=== PATIENT | male | born 1975 | race Caucasian/White ===

== ENCOUNTER 2018-03-19 08:19 | Emergency (ER) | payer SELFPAY ==
[2018-03-19 08:27] VITALS: BP 132/79; PULSE 79; RESP 18; TEMP 97.6; O2SAT 98
[2018-03-19] MEDS ORDERED: SODIUM CHLOR 0.9% 1000 ML INJ 1,000 ML IV SCH (09:16)
[2018-03-19] MEDS ORDERED: FAMOTIDINE 20 MG/2 ML VIAL IV PUSH ONE (09:30)
[2018-03-19] MEDS ORDERED: SODIUM CHLORIDE 0.9% FLUSH 10 ML FLUSH IV FLUSH PRN (09:30)
[2018-03-19 09:45] LABS: AUTOMATED NEUTROPHIL # 4.3 TH/MM3 (1.8-7.7); BASOPHIL % 0.5 % (0.0-2.0); EOSINOPHIL # 0.2 TH/MM3 (0-0.4); EOSINOPHIL % 3.3 % (0.0-4.0); HEMATOCRIT 45.6 % (39.0-51.0); HEMOGLOBIN 15.7 GM/DL (13.0-17.0); LYMPHOCYTE # 2.2 TH/MM3 (1.0-4.8); MEAN CELL VOLUME 89.9 FL (80.0-100.0); MEAN CORPUSCULAR HEMOGLOBIN 30.9 PG (27.0-34.0); MEAN CORPUSCULAR HGB CONC 34.3 % (32.0-36.0); MEAN PLATELET VOLUME 7.5 FL (7.0-11.0); MONO % 7.7 % (0.0-8.0); MONOCYTE # 0.6 TH/MM3 (0-0.9); NEUT % 58.5 % (16.0-70.0); PLATELET COUNT 234 TH/MM3 (150-450); RED BLOOD COUNT 5.07 MIL/MM3 (4.50-5.90); RED CELL DISTRIBUTION WIDTH 14.2 % (11.6-17.2); WHITE BLOOD COUNT 7.3 TH/MM3 (4.0-11.0)
--- NOTE | 2018-03-19 09:53 | RADRPT ---
EXAM DATE/TIME: 03/19/2018 09:42 [facility] COMPARISON: No previous studies available for comparison. INDICATIONS : Chest pain. MEDICAL HISTORY : None. SURGICAL HISTORY : None. ENCOUNTER: Initial ACUITY: 3 days PAIN SCORE: 1/10 LOCATION: Bilateral chest FINDINGS: A single view of the chest demonstrates the lungs to be symmetrically aerated without evidence of mas s, infiltrate or effusion. The cardiomediastinal contours are unremarkable. Osseous structures are intact. CONCLUSION: Normal examination. Earl Mosquera MD on March 19, 2018 at 9:51 Board Certified Radiologist. This report was verified electronically.
--- NOTE | 2018-03-19 09:53 | RADRPT ---
EXAM DATE/TIME: 03/19/2018 09:39 [facility] COMPARISON: No previous studies available for comparison. INDICATIONS : Abdominal pain and vomiting. MEDICAL HISTORY : None. SURGICAL HISTORY : None. ENCOUNTER: Initial ACUITY: 3 days PAIN SCORE: 1/10 LOCATION: Bilateral upper abdomen FINDINGS: Supine and upright views of the abdomen were performed. The abdominal bowel gas pattern is normal. No air fluid levels are seen. No abnormal masses, calcifications, or organomegaly is seen. The visu alized lower lungs are clear. No evidence of free intraperitoneal gas. The osseous structures are u nremarkable. CONCLUSION: Normal examination. Earl Mosquera MD on March 19, 2018 at 9:51 Board Certified Radiologist. This report was verified electronically.
[2018-03-19 09:57] VITALS: O2SAT 98
[2018-03-19 09:59] LABS: ALBUMIN 3.9 GM/DL (3.4-5.0); AST (GOT) 33 U/L (15-37); BICARBONATE 28.7 MEQ/L (21.0-32.0); BLOOD UREA NITROGEN 14 MG/DL (7-18); CALCIUM 8.8 MG/DL (8.5-10.1); CHLORIDE 105 MEQ/L (98-107); CREATININE 0.87 MG/DL (0.60-1.30); GLOMERULAR FILTRATION RATE 97 ML/MIN (>89); GLUCOSE,RANDOM 97 MG/DL (74-106); SODIUM (NA) 139 MEQ/L (136-145)
[2018-03-19 10:00] LABS: ALT (GPT) 39 U/L (12-78)
[2018-03-19 10:02] LABS: ALKALINE PHOSPHATASE 84 U/L (45-117); TOTAL BILIRUBIN ADULT 0.3 MG/DL (0.2-1.0); TOTAL PROTEIN 7.5 GM/DL (6.4-8.2)
--- NOTE | 2018-03-19 10:44 | PD ---
HPI Chief Complaint: GI Complaint Time Seen by Provider: 09:24 Travel History International Travel<30 days: No Contact w/Intl Traveler<30days: No Traveled to known affect area: No History of Present Illness HPI 42-year-old male patient with history of. He states his symptoms started after he had been drinking alcohol and vomited. He states that he feels like a fullness like a gas pain. He had tried to take [id number] acid blockers without significant relief. Pain is currently a 2-3 out of 10. He denies any fevers, diarrhea, coughing, shortness of breath, chest pains, or any other issues. Modifying Factors: None Associated Signs & Symptoms: Upper abdominal pain, nausea Risk Factors: Recent alcohol use and vomiting PFSH Past Medical History Medical History: Denies Significant Hx Diminished Hearing: No Tetanus Vaccination: Unknown Past Surgical History Surgical History: No Previous Surgery Social History Alcohol Use: Yes (DAILY " 2 SHOTS OF WHISKEY OR FIREBALL") Tobacco Use: Yes (1 PPD) Substance Use: Yes (MARIJUANA) Allergies-Medications (Allergen,Severity, Reaction): Coded Allergies: No Known Allergies (Unverified , 03/19/18) Reported Meds & Prescriptions Reported Meds & Active Scripts Active No Active Prescriptions or Reported Medications Review of Systems Except as stated in HPI: all other systems reviewed are Neg Physical Exam Narrative GENERAL: Well-developed middle-age male patient currently in mild distress. Awake and oriented 3. SKIN: Focused skin assessment warm/dry. HEAD: Atraumatic. Normocephalic. EYES: Pupils equal and round. No scleral icterus. No injection or drainage. ENT: No nasal bleeding or discharge. Mucous membranes pink and moist. NECK: Trachea midline. No JVD. CARDIOVASCULAR: Regular rate and rhythm. No murmur appreciated. RESPIRATORY: No accessory muscle use. Clear to auscultation. Breath sounds equal bilaterally. GASTROINTESTINAL: Abdomen soft, mild left-sided upper abdominal tenderness without guarding or rebound, nondistended. Hepatic and splenic margins not palpable. MUSCULOSKELETAL: No obvious deformities. No clubbing. No cyanosis. No edema. NEUROLOGICAL: Awake and alert. No obvious cranial nerve deficits. Motor grossly within normal limits. Normal speech. PSYCHIATRIC: Appropriate mood and affect; insight and judgment normal. Data Data Last Documented VS Vital Signs Date Time Temp Pulse Resp B/P (MAP) Pulse Ox O2 Delivery O2 Flow Rate FiO2 03/19/18 09:57 98 Room Air 03/19/18 08:27 97.6 79 18 132/79 (96) Orders Orders Complete Blood Count With Diff (03/19/18 09:16) Comprehensive Metabolic Panel (03/19/18 09:16) Lipase (03/19/18 09:16) Iv Access Insert/Monitor (03/19/18 09:16) Ecg Monitoring (03/19/18 09:16) Oximetry (03/19/18 09:16) Sodium Chlor 0.9% 1000 Ml Inj (Ns 1000 M (03/19/18 09:16) Sodium Chloride 0.9% Flush (Ns Flush) (03/19/18 09:30) Famotidine Inj (Pepcid Inj) (03/19/18 09:30) Chest, Single Ap (03/19/18 09:18) Abdomen, Flat & Upright (03/19/18 09:18) Ed Discharge Order (03/19/18 10:41) Labs Laboratory Tests Test 03/19/18 09:30 White Blood Count 7.3 TH/MM3 Red Blood Count 5.07 MIL/MM3 Hemoglobin 15.7 GM/DL Hematocrit 45.6 % Mean Corpuscular Volume 89.9 FL Mean Corpuscular Hemoglobin 30.9 PG Mean Corpuscular Hemoglobin Concent 34.3 % Red Cell Distribution Width 14.2 % Platelet Count 234 TH/MM3 Mean Platelet Volume 7.5 FL Neutrophils (%) (Auto) 58.5 % Lymphocytes (%) (Auto) 30.0 % Monocytes (%) (Auto) 7.7 % Eosinophils (%) (Auto) 3.3 % Basophils (%) (Auto) 0.5 % Neutrophils # (Auto) 4.3 TH/MM3 Lymphocytes # (Auto) 2.2 TH/MM3 Monocytes # (Auto) 0.6 TH/MM3 Eosinophils # (Auto) 0.2 TH/MM3 Basophils # (Auto) 0.0 TH/MM3 CBC Comment DIFF FINAL Differential Comment Blood Urea Nitrogen 14 MG/DL Creatinine 0.87 MG/DL Random Glucose 97 MG/DL Total Protein 7.5 GM/DL Albumin 3.9 GM/DL Calcium Level 8.8 MG/DL Alkaline Phosphatase 84 U/L Aspartate Amino Transf (AST/SGOT) 33 U/L Alanine Aminotransferase (ALT/SGPT) 39 U/L Total Bilirubin 0.3 MG/DL Sodium Level 139 MEQ/L Potassium Level 3.9 MEQ/L Chloride Level 105 MEQ/L Carbon Dioxide Level 28.7 MEQ/L Anion Gap 5 MEQ/L Estimat Glomerular Filtration Rate 97 ML/MIN Lipase 131 U/L MDM Medical Decision Making Medical Screen Exam Complete: Yes Emergency Medical Condition: Yes Medical Record Reviewed: Yes Interpretation(s) Laboratory Tests Test 03/19/18 09:30 Last 24 hours Impressions Chest X-Ray 03/19/18917 Signed Impressions: Service Date/Time: Monday, March 19, 2018 09:42 - CONCLUSION: Normal examination. Earl Mosquera MD Abdomen X-Ray 03/19/18917 Signed Impressions: Service Date/Time: Monday, March 19, 2018 09:39 - CONCLUSION: Normal examination. Earl Mosquera MD Differential Diagnosis Gastritis versus gastroenteritis versus pancreatitis Narrative Course Abdomen is fairly benign and I do not suspect an acute intra-abdominal process in this case. His x-rays not show any signs of free air obstruction, did not show any signs of acute pulmonary processes. He was given IV fluids and Zantac and on reevaluation in the ER at 10:40 AM, he appears to be doing well, and states that his abdominal discomfort has mostly gone. He states that he really needs is a work note to go back to work at this point. I have offered to give him a prescription for Zantac but he states that he can just pick that up over- the-counter. He should take that for about a week and see how he does. He should return for any worsening in symptoms. The plan was discussed with him and he states understanding. Diagnosis Primary Impression: Gastritis Scripts No Active Prescriptions or Reported Meds Disposition: DISCHARGE HOME Condition: Stable Williams Sawyer MD March 19, 2018 10:44
[2018-03-19 10:55] VITALS: BP 133/76
== END 2018-03-19 11:03 | disposition home or self-care (01) ==
LOC: NEPC 08:19
DX: K29.70 Gastritis, unspecified, without bleeding (principal); F12.90 Cannabis use, unspecified, uncomplicated; F17.200 Nicotine dependence, unspecified, uncomplicated
CPT/HCPCS: 71045; 74019; 80053; 83690; 85025; 96374; 99284; J7030